=== PATIENT | male | born 2000 | race Caucasian/White ===

== ENCOUNTER 2021-07-10 19:55 | Emergency (ER) | payer MEDICAID, SELFPAY ==
[~2021-07-10] VITALS: Ht 190.5 cm; Wt 81.8 kg
[2021-07-10 20:54] VITALS: BP 133/87
[2021-07-10] MEDS ORDERED: CefTRIAXone SODIUM 250 MG in DEXTROSE 5%-WATER 50 ML IV ONE (22:15)
[2021-07-10] MEDS ORDERED: AZITHROMYCIN 500 MG TABLET PO ONE (22:15)
[2021-07-10] MEDS ORDERED: MetroNIDAZOLE 500 MG TABLET PO ONE (22:15)
[2021-07-10] MEDS ORDERED: CefTRIAXone SODIUM 1 GM/VIAL IM ONE (22:30)
[2021-07-10] MEDS ORDERED: LIDOCAINE/PF 1% 2 ML VIAL IM ONE (22:30)
[2021-07-10] MEDS ORDERED: CefTRIAXone SODIUM 250 MG/VIAL IM ONE (22:45)
== END 2021-07-10 23:04 | disposition home or self-care (01) ==
LOC: EMS 19:59
DX: N34.2 Other urethritis (principal); F17.210 Nicotine dependence, cigarettes, uncomplicated
CPT/HCPCS: 99283; J0696; J3490; Q9967; J7060

== ENCOUNTER 2022-06-07 02:17 | Emergency (ER) | payer MEDICAID ==
[~2022-06-07] VITALS: Ht 188 cm; Wt 79.1 kg
[2022-06-07 02:19] VITALS: BP 143/87
[2022-06-07] MEDS ORDERED: IBUPROFEN 600 MG TABLET PO ONE (03:00)
== END 2022-06-07 04:55 | disposition left against medical advice (07) ==
LOC: EMS 02:18
DX: S02.611A Fracture of condylar process of right mandible, initial encounter for closed fracture (principal); F10.20 Alcohol dependence, uncomplicated; F17.210 Nicotine dependence, cigarettes, uncomplicated; Y09 Assault by unspecified means; Y93.89 Activity, other specified; Y92.89 Other specified places as the place of occurrence of the external cause; Y99.8 Other external cause status
CPT/HCPCS: 70450; 70486; 99284

== ENCOUNTER 2025-04-25 14:46 | Emergency (ER) | payer MEDICAID ==
[~2025-04-25] VITALS: Ht 190.5 cm; Wt 81.8 kg
[2025-04-25 14:50] VITALS: TEMP 97.9
[2025-04-25] MEDS: PROPARACAINE HCL 0.5% 15 ML OPHTHALMIC SOLUTION OU ONE (16:30)
[2025-04-25] MEDS: FLUORESCEIN SODIUM 1 MG STRIP OU ONE (16:30)
[2025-04-25] MEDS: PERTUSS(ACELL),DIPH,TET/PF 0.5 ML SYRINGE [ADULT] IM. ONE (17:30)
[2025-04-25 17:31] VITALS: BP 138/80; PULSE 71; RESP 18; O2SAT 97
== END 2025-04-25 19:24 | disposition home or self-care (01) ==
LOC: EMS 14:46
DX: S05.92XA Unspecified injury of left eye and orbit, initial encounter (principal); F17.210 Nicotine dependence, cigarettes, uncomplicated; Z98.890 Other specified postprocedural states; X50.0XXA Overexertion from strenuous movement or load, initial encounter; Y93.B3 Activity, free weights; Y92.89 Other specified places as the place of occurrence of the external cause; Y99.8 Other external cause status
CPT/HCPCS: 90471; 90715; 99283